=== PATIENT | male | born 1945 | race Caucasian/White ===

== ENCOUNTER → 2017-02-19 | Outpatient (CLI) | payer OTHER | LOC: HEART 5 09:06 | DX: R06.02 Shortness of breath (principal); R94.2 Abnormal results of pulmonary function studies | CPT/HCPCS: 94060; 94729 ==

== ENCOUNTER → 2017-03-09 | Outpatient (CLI) | payer OTHER | LOC: EXRD 09:54 | DX: M25.552 Pain in left hip (principal); R60.0 Localized edema | CPT/HCPCS: 73502 ==

== ENCOUNTER → 2017-03-27 | Outpatient (CLI) | payer OTHER | LOC: US 11:07 → ECHO 12:00 | DX: R06.02 Shortness of breath (principal); R60.0 Localized edema; I35.0 Nonrheumatic aortic (valve) stenosis | CPT/HCPCS: ECHO; 93306 ==

== ENCOUNTER → 2021-03-29 | Outpatient (CLI) | payer OTHER | LOC: HEART 5 14:16 | DX: I08.3 Combined rheumatic disorders of mitral, aortic and tricuspid valves (principal); I71.2 Thoracic aortic aneurysm, without rupture; Z72.0 Tobacco use | CPT/HCPCS: 93306 ==

== ENCOUNTER → 2021-10-27 | Outpatient (CLI) | payer OTHER | LOC: CT 08:08 | DX: I71.2 Thoracic aortic aneurysm, without rupture (principal); I35.0 Nonrheumatic aortic (valve) stenosis; I70.202 Unspecified atherosclerosis of native arteries of extremities, left leg; I34.0 Nonrheumatic mitral (valve) insufficiency | CPT/HCPCS: ECHO; 36415; 75635; 82565; 84520; 93306; Q9967 ==

== ENCOUNTER → 2021-11-15 | Outpatient (CLI) | payer OTHER | LOC: CT 12:50 | DX: I71.2 Thoracic aortic aneurysm, without rupture (principal); K22.89 Other specified disease of esophagus | CPT/HCPCS: 71275; Q9967 ==

== ENCOUNTER → 2021-12-19 | Outpatient (CLI) | payer OTHER | LOC: HEART 5 10:17 | DX: R06.02 Shortness of breath (principal) | CPT/HCPCS: 94060; 94729 ==

== ENCOUNTER → 2022-06-23 | Outpatient (CLI) | payer OTHER ==
[2022-06-23 08:01] LABS: HEMOGLOBIN 16.1 gm/dl (14.0-17.5); RED BLOOD COUNT 4.93 M/UL (4.20-5.50); WHITE BLOOD COUNT 7.6 K/UL (4.5-11.0)
[2022-06-23 08:25] LABS: BUN/CREATININE RATIO 20 (0-10)
== END ==
LOC: LAB 07:36
PROVIDERS: Nurse Practitioner Family
DX: E11.9 Type 2 diabetes mellitus without complications (principal); E53.8 Deficiency of other specified B group vitamins; E78.00 Pure hypercholesterolemia, unspecified; E55.9 Vitamin D deficiency, unspecified
CPT/HCPCS: 36415; 80053; 80061; 82570; 82607; 84156; 84439; 84443; 85025